=== PATIENT | male | born 1970 | race Asian ===

== ENCOUNTER 2018-02-18 15:23 | Outpatient (CLI) | payer OTHER ==
--- NOTE | 2018-02-19 10:38 | XRAY Report ---
CHEST, TWO VIEWS: 02/18/2018 HISTORY: Dry cough. COMPARISON: None. FINDINGS: The heart is mildly enlarged in size. The lungs are clear. There is no pleural fluid or pneumothorax. Minor age-related changes in the spine. IMPRESSION: MILD CARDIOMEGALY. CLEAR LUNGS. TD: 02/19/2018 10:36
== END 2018-02-18 15:24 | disposition home or self-care (01) ==
LOC: DI 15:23
PROVIDERS: ATTEND Internal Medicine
DX: R06.00 Dyspnea, unspecified (principal); R05 Cough; I51.7 Cardiomegaly
CPT/HCPCS: 71046

== ENCOUNTER 2020-09-14 08:57 | Outpatient (CLI) | payer OTHER ==
[2020-09-14 12:42] LABS: H. PYLORIS ANTIGEN STL NEGATIVE (Negative)
== END 2020-09-14 23:59 | disposition home or self-care (01) ==
LOC: LAB.R 08:57
PROVIDERS: ATTEND Internal Medicine Hematology & Oncology
DX: D69.6 Thrombocytopenia, unspecified (principal)
CPT/HCPCS: 87338

== ENCOUNTER 2020-10-09 07:12 | Outpatient (CLI) | payer OTHER ==
--- NOTE | 2020-10-09 10:36 | Ultrasound Report ---
PROCEDURE: Abdomen Complete INDICATIONS: THROMBOCYTOPENIA TECHNIQUE: Real-time scanning was performed of the abdominal and retroperitoneal organs, with image documentatio n. COMPARISON: None. FINDINGS: Liver: Liver is normal in size and homogeneous in echotexture. Gallbladder: No gallbladder wall thickening or pericholecystic fluid. No gallstones. Biliary ducts: Intrahepatic bile ducts are non-dilated. Extrahepatic bile duct caliber measures 2 m m. Normal is 6-7 mm or less in diameter, or 10 mm or less post-cholecystectomy. Pancreas: Visualized portions of the pancreas are sonographically normal. Spleen: Spleen is normal in size and homogeneous in echotexture. Kidneys: Kidneys are normal in size and echotexture. Right kidney measures 11.1 cm long; left kidne y measures 10.5 cm long. No hydronephrosis or nephrolithiasis. No solid masses. The left kidney hernandez s a simple cyst. Aorta: Visualized aorta is normal in caliber at less than 3 cm. Iliacs: Proximal common iliac arteries are normal in caliber at less than 2.5 cm. IVC: Intrahepatic inferior vena cava is patent. Miscellaneous: No free abdominal fluid. IMPRESSION: Normal abdominal ultrasound. No acute abnormality. Reviewed by: Don Wiggins on 10/09/2020 10:34 AM [facility] Approved by: Don Wiggins on 10/09/2020 10:34 AM [facility] Station ID: [id number]
== END 2020-10-09 07:13 | disposition home or self-care (01) ==
LOC: DI 07:12
PROVIDERS: ATTEND Internal Medicine Hematology & Oncology
DX: D69.6 Thrombocytopenia, unspecified (principal)
CPT/HCPCS: 76700

== ENCOUNTER 2021-05-16 21:28 | Outpatient (CLI) | payer OTHER ==
--- NOTE | 2021-05-17 06:34 | Ultrasound Report ---
PROCEDURE: Duplex Ext Veins Right INDICATIONS: RT ANKLE PAIN TECHNIQUE: Real-time imaging, as well as color and pulse Doppler interrogation, were performed of the lower extr emity deep veins from the inguinal ligament to the popliteal fossa. COMPARISON: None. FINDINGS: The deep veins are normally compressible, and free of intraluminal thrombus. Color and pu lse Doppler demonstrate normal phasic intraluminal flow. There is normal augmentation response to di stal compression maneuver. IMPRESSION: No evidence of deep vein thrombosis involving the right lower extremity. Reviewed by: Palmira Arroyo MD, PhD on 05/17/2021 6:33 AM PDT Approved by: Palmira Arroyo MD, PhD on 05/17/2021 6:33 AM PDT Station ID: [id number]
== END 2021-05-16 21:29 | disposition home or self-care (01) ==
LOC: DI 21:28
PROVIDERS: ATTEND Internal Medicine
DX: M25.571 Pain in right ankle and joints of right foot (principal)

== ENCOUNTER 2022-09-26 16:01 | Outpatient (CLI) | payer OTHER | END 2022-09-26 16:02 | disposition critical access hospital (66) | LOC: EMS 16:01 | DX: R06.02 Shortness of breath (principal); R50.9 Fever, unspecified | CPT/HCPCS: A0425; A0429 ==

== ENCOUNTER 2022-09-26 16:24 | Emergency (ER) | payer OTHER ==
[2022-09-26] MEDS ORDERED: IPRATROPIUM/ALBUTEROL 3 ML NEB INH STA (16:45)
[2022-09-26 16:57] LABS: BASOPHILS % (AUTO) 0.2 %; EOSINOPHILS % (AUTO) 0.2 %; HCT - HEMATOCRIT 42.7 % (42.0-52.0); HGB - HEMOGLOBIN 13.8 g/dL (14.0-18.0); LYMPHOCYTES # (AUTO) 0.8 10^3/uL (1.5-3.5); LYMPHOCYTES % (AUTO) 12.7 %; MEAN CORPUSCULAR HGB CONC 32.3 g/dL (32.0-36.0); MEAN CORPUSCULAR VOLUME 89.7 fL (80.0-94.0); MEAN PLATELET VOLUME 11.8 fL (7.4-11.4); MONOCYTES # (AUTO) 0.7 10^3/uL (0.0-1.0); MONOCYTES % (AUTO) 10.5 %; NEUTROPHILS # (AUTO) 4.7 10^3/uL (1.5-6.6); NEUTROPHILS % (AUTO) 76.2 %; PLT - PLATELET COUNT 99 10^3/uL (130-450); RED BLOOD COUNT 4.76 10^6/uL (4.70-6.10); RED CELL DISTRIBUTION WIDTH 13.7 % (12.0-15.0); WHITE BLOOD COUNT 6.2 x10^3/uL (4.8-10.8)
--- NOTE | 2022-09-26 16:57 | ED Physician Documentation ---
History of Present Illness - Stated complaint Stated Complaint: SOA - Chief complaint Chief Complaint: Resp - Additonal information Additional information: 52-year-old male presents to the emergency department For evaluation of sudden onset shortness of air rigors and fever. Patient does have a history of thrombocytopenia that was felt likely to be immune related however he does have a history of alcoholism. He did quit drinking many years ago. He also has a history of atrial fibrillation on anticoagulation. He is had no nausea or vomiting. mild chest pain, non raditing. Mostly with deep breaths. With the dyspnea at home he attempted to use albuterol though there was no therapeutic relief thus his brings him into the emergency department. reported to nursing staff that the patient lives in a home where multiple family members are sick with influenza Review of Systems Constitutional: reports: Fever, Myalgias, Fatigue Eyes: reports: Reviewed and negative Nose: reports: Reviewed and negative Cardiac: denies: Chest pain / pressure, Palpitations, Pedal edema, Calf pain Respiratory: reports: Dyspnea, Cough, Wheezing GI: reports: Abdominal Swelling : reports: Reviewed and negative Skin: reports: Reviewed and negative PD PAST MEDICAL HISTORY - Present Medications Home Medications: Ambulatory Orders Medication Instructions Recorded Confirmed Oseltamivir Phosphate [Tamiflu] 30 mg PO BID #10 cap 09/26/22 - Allergies Allergies/Adverse Reactions: Allergies Allergy/AdvReac Type Severity Reaction Status Date / Time No Known Drug Allergies Allergy Verified 12/23/20 10:17 - Social History Smoking Status: Never smoker PD ED PE NORMAL - General General: Alert and oriented X 3, No acute distress, Well developed/nourished - HEENT HEENT: Atraumatic, Ears normal, Moist mucous membranes - Neck Neck: Supple, no meningeal sign - Cardiac Cardiac: No murmur. No: RRR (Atrial fibrillation rate controlled) - Respiratory Respiratory: No respiratory distress, Clear bilaterally - Abdomen Abdomen: Normal bowel sounds, Soft. No: Non tender (Mild distention though no tenderness. No clear ascites) - Back Back: No CVA TTP, No spinal TTP - Derm Derm: Normal color, Warm and dry - Extremities Extremities: No deformity, No tenderness to palpate, Normal ROM s pain - Neuro Neuro: Alert and oriented X 3, range technician 2-12 intact Eye Opening: Spontaneous Motor: Obeys Commands Verbal: Oriented GCS Score: 15 Results - Vitals Vitals: Vital Signs - 24 hr 11/09/22 11/09/22 11/09/22 16:34 17:10 17:17 Temperature 39.4 C H Heart Rate 86 87 89 Respiratory 33 H 32 H 20 Rate Blood Pressure 124/70 112/65 O2 Saturation 96 95 09/26/22 09/26/22 09/26/22 17:30 18:00 18:30 Temperature 39.1 C H Heart Rate 88 86 86 Respiratory 28 H 36 H 24 Rate Blood Pressure 105/57 L 105/57 L 111/70 O2 Saturation 95 92 93 09/26/22 19:00 Temperature Heart Rate 84 Respiratory 30 H Rate Blood Pressure 125/58 L O2 Saturation 96 Oxygen O2 Source Room air - EKG (time done) 1704 Rate: Rate (enter#) (85) Rhythm: Atrial fibrillation Deane: Normal Intervals: No: Prolonged QT QRS: LVH Ischemia: Normal ST segments Compare to prior EKG: Old EKG unavailable Computer interpretation: Agree with computer - Labs Labs: Laboratory Tests 09/26/22 09/26/22 09/26/22 16:46 16:46 16:46 WBC 6.2 RBC 4.76 Hgb 13.8 L Hct 42.7 MCV 89.7 MCH 29.0 MCHC 32.3 RDW 13.7 Plt Count 99 L MPV 11.8 H Neut # (Auto) 4.7 Lymph # (Auto) 0.8 L [place] # (Auto) 0.7 Eos # (Auto) 0.0 Baso # (Auto) 0.0 Absolute Nucleated RBC 0.00 Nucleated RBC % 0.0 Sodium 134 L Potassium 3.7 Chloride 102 Carbon Dioxide 23 Anion Gap 9.0 BUN 26 H Creatinine 1.4 H Estimated GFR (MDRD) 53 L Glucose 111 H Calcium 8.4 L Total Bilirubin 0.9 AST 32 ALT 23 Alkaline Phosphatase 77 Troponin I High Sens 106.0 H* B-Natriuretic Peptide Total Protein 7.4 Albumin 3.9 Globulin 3.5 Albumin/Globulin Ratio 1.1 Lipase 50 TSH Thyroxine (T4) Nasal Adenovirus (PCR) Nasal B. parapertussis DNA (PCR) Nasal Coronavir 229E PCR Nasal Coronavir HKU1 PCR Nasal Coronavir NL63 PCR Nasal Coronavir OC43 PCR Nasal Enterovir/Rhinovir PCR Nasal Influenza A H3 PCR Nasal Influenza B PCR Nasal Parainfluen 1 PCR Nasal Parainfluen 2 PCR Nasal Parainfluen 3 PCR Nasal Parainfluen 4 PCR Nasal RSV (PCR) Nasal B.pertussis DNA PCR Nasal C.pneumoniae (PCR) Fredrick Human Metapneumo PCR Nasal M.pneumoniae (PCR) Nasal SARS-CoV-2 (PCR) 09/26/22 09/26/22 09/26/22 16:46 16:46 17:00 WBC RBC Hgb Hct MCV MCH MCHC RDW Plt Count MPV Neut # (Auto) Lymph # (Auto) [place] # (Auto) Eos # (Auto) Baso # (Auto) Absolute Nucleated RBC Nucleated RBC % Sodium Potassium Chloride Carbon Dioxide Anion Gap BUN Creatinine Estimated GFR (MDRD) Glucose Calcium Total Bilirubin AST ALT Alkaline Phosphatase Troponin I High Sens B-Natriuretic Peptide 723 H Total Protein Albumin Globulin Albumin/Globulin Ratio Lipase TSH 5.04 Thyroxine (T4) 6.48 Nasal Adenovirus (PCR) NOT DETECTED Nasal B. parapertussis DNA (PCR) NOT DETECTED Nasal Coronavir 229E PCR NOT DETECTED Nasal Coronavir HKU1 PCR NOT DETECTED Nasal Coronavir NL63 PCR NOT DETECTED Nasal Coronavir OC43 PCR NOT DETECTED Nasal Enterovir/Rhinovir PCR DETECTED A Nasal Influenza A H3 PCR DETECTED A Nasal Influenza B PCR NOT DETECTED Nasal Parainfluen 1 PCR NOT DETECTED Nasal Parainfluen 2 PCR NOT DETECTED Nasal Parainfluen 3 PCR NOT DETECTED Nasal Parainfluen 4 PCR NOT DETECTED Nasal RSV (PCR) NOT DETECTED Nasal B.pertussis DNA PCR NOT DETECTED Nasal C.pneumoniae (PCR) NOT DETECTED Fredrick Human Metapneumo PCR NOT DETECTED Nasal M.pneumoniae (PCR) NOT DETECTED Nasal SARS-CoV-2 (PCR) NOT DETECTED 09/26/22 19:16 WBC RBC Hgb Hct MCV MCH MCHC RDW Plt Count MPV Neut # (Auto) Lymph # (Auto) [place] # (Auto) Eos # (Auto) Baso # (Auto) Absolute Nucleated RBC Nucleated RBC % Sodium Potassium Chloride Carbon Dioxide Anion Gap BUN Creatinine Estimated GFR (MDRD) Glucose Calcium Total Bilirubin AST ALT Alkaline Phosphatase Troponin I High Sens 137.9 H* B-Natriuretic Peptide Total Protein Albumin Globulin Albumin/Globulin Ratio Lipase TSH Thyroxine (T4) Nasal Adenovirus (PCR) Nasal B. parapertussis DNA (PCR) Nasal Coronavir 229E PCR Nasal Coronavir HKU1 PCR Nasal Coronavir NL63 PCR Nasal Coronavir OC43 PCR Nasal Enterovir/Rhinovir PCR Nasal Influenza A H3 PCR Nasal Influenza B PCR Nasal Parainfluen 1 PCR Nasal Parainfluen 2 PCR Nasal Parainfluen 3 PCR Nasal Parainfluen 4 PCR Nasal RSV (PCR) Nasal B.pertussis DNA PCR Nasal C.pneumoniae (PCR) Fredrick Human Metapneumo PCR Nasal M.pneumoniae (PCR) Nasal SARS-CoV-2 (PCR) - Rads (name of study) cxr Radiology: Final report received (No acute cardiopulmonary process) PD MEDICAL DECISION MAKING - ED course Complexity details: reviewed results, re-evaluated patient, d/w patient, d/w delivery consultant (Dr. Hall [facility]) ED course: 52-year-old male who has a history of thrombocytopenia former alcoholism as well as hypertension and A. fib anticoagulated on Xarelto presents to the emergency department for evaluation of acute febrile illness that began a few hours prior to arrival. Multiple family members at home are positive for the flu. Patient reports very briefly he had some chest pain with deep breath but it is fully abated since then. On presentation to the ER he is alert and well-appearing however he is febrile at 39 degrees. No hypoxia. He has tested positive for influenza A. Chest x-ray did not show any acute focal findings. His EKG showed a rate controlled atrial fibrillation without ischemia. However the initial troponin was 100. On repeat it was 137. He does have some chronic kidney disease as well as a mild BNP elevation though clinically does not appear to be in heart failure. I have spoken with on-call print line feeder for [facility] Dr. Hall. We discussed the patient's clinical presentation of febrile illness in the setting of influenza as well as a history of atrial fibrillation on anticoagulation. He does not feel that the elevated troponin is indicative of an OK. He would make the recommendation for admission to the hospital for echocardiogram in the morning and further treatment of the influenza otherwise. 2015: I spoke with the patient and his at the bedside and I told him that I would like to admit them to the hospital for an echocardiogram in the morning and to ensure that the troponins are downtrending. We discussed the possible etiology of elevated troponins which could be seen in NSTEMI, febrile illness, pericarditis as well as this febrile illness. However the patient does not want to remain in the hospital overnight therefore he is discharged AGAINST MEDICAL ADVICE however I will institute treatment of influenza with Tamiflu. They were told that if his condition should worsen in any way he was to return immediately to the ER with no questions asked. They both verbalized understanding. Departure - Departure Disposition: 07 Against Medical Advice Clinical Impression: Influenza A, Elevated troponin, History of atrial fibrillation Chronic kidney disease (CKD) Qualifiers: Chronic kidney disease stage: unspecified stage Qualified Code(s): N18.9 - Chronic kidney disease, unspecified Condition: Stable Record reviewed to determine appropriate education?: Yes Instructions: Medication: Tamiflu (Oseltamivir) Prescriptions: Oseltamivir Phosphate [Tamiflu] 30 mg PO BID #10 cap Comments: Esvin came to the emergency department because he developed a sudden febrile illness at home with shakes fever rigors and chills. He has tested positive for influenza A. His chest x-ray does not show any findings of pneumonia. His EKG shows atrial fibrillation. In the emergency department today we note that his hemoglobin is normal. He does have known and unchanged chronic kidney disease. His troponin, which is sometimes a marker of cardiac inflammation was a little bit elevated. This could be seen due to atrial fibrillation, the chronic kidney disease, the influenza or it could be a sign of a form of a heart attack. I did discuss this case with the on-call print line feeder Dr. Hall. This is a print line feeder at [facility]. He made the recommendation that Esvin be observed and to obtain an echocardiogram in the morning but you guys have declined that. In order to treat the influenza I have sent a prescription for Tamiflu to [facility] in [place]. He needs to stay well-hydrated. He should continue to take all his usual medications. If his symptoms are worsening in any way please return immediately to the emergency department.
[2022-09-26 17:11] LABS: ALBUMIN 3.9 g/dL (3.2-5.5); ALBUMIN/GLOBULIN RATIO 1.1 (1.0-2.2); BILIRUBIN,TOTAL 0.9 mg/dL (0.2-1.0); CALCIUM 8.4 mg/dL (8.5-10.3); CREATININE 1.4 mg/dL (0.6-1.2); POTASSIUM 3.7 mmol/L (3.5-5.0); TOTAL PROTEIN 7.4 g/dL (6.7-8.2)
--- NOTE | 2022-09-26 17:11 | XRAY Report ---
PROCEDURE: Chest 1 View X-Ray INDICATIONS: Chest Pain TECHNIQUE: One view of the chest was acquired. COMPARISON: Chest x-ray 04/20/2022 FINDINGS: Surgical changes and devices: Pacemaker with intact leads. Lungs and pleura: No pleural effusions or pneumothorax. Lungs are clear. Mediastinum: Mediastinal contours appear normal. Heart size is enlarged. Bones and chest wall: No suspicious bony lesions. Overlying soft tissues appear unremarkable. IMPRESSION: No acute pulmonary process. Reviewed by: Abbey Chin MD on 09/26/2022 5:09 PM PST Approved by: Abbey Chin MD on 09/26/2022 5:09 PM PST Station ID: [id number]
[2022-09-26 17:23] LABS: T4 (THYROXINE) 6.48 ug/dL (6.09-12.23)
[2022-09-26 17:27] LABS: THYROID STIMULATING HORMONE 5.04 uIU/mL (0.34-5.60)
[2022-09-26 18:24] LABS: B. PARAPERTUSSIS- RESP PCR PAN NOT DETECTED; B. PERTUSSIS- RESP PCR PANEL NOT DETECTED; C. PNEUMONIAE- RESP PCR PANEL NOT DETECTED; CORONAVIRUS 229E-RESP PCR NOT DETECTED; CORONAVIRUS HKU1-RESP PCR NOT DETECTED; CORONAVIRUS NL63-RESP PCR NOT DETECTED; CORONAVIRUS OC43-RESP PCR NOT DETECTED; HUMAN METAPNEUMOVIRUS NOT DETECTED; INFLUENZA A H3- RESP PCR PANEL DETECTED; INFLUENZA B - RESP PCR PANEL NOT DETECTED; M. PNEUMONIAE- RESP PCR PANEL NOT DETECTED; PARAINFLUENZA VIRUS 1 NOT DETECTED; PARAINFLUENZA VIRUS 2 NOT DETECTED; PARAINFLUENZA VIRUS 3 NOT DETECTED; PARAINFLUENZA VIRUS 4 NOT DETECTED; RHINOVIRUS/ENTEROVIRUS DETECTED; RSV- RESP PCR PANEL NOT DETECTED; SARS-CoV-2 -RESP PCR PANEL NOT DETECTED
[2022-09-26] MEDS ORDERED: ACETAMINOPHEN 325 MG TABLET PO STA (18:39)
[2022-09-26] MEDS ORDERED: SODIUM CHLORIDE 0.9% 1,000 ML IV STA (18:39)
[2022-09-26] MEDS ORDERED: OSELTAMIVIR 75 MG CAPSULE PO STA (20:23)
[2022-09-26 20:33] VITALS: BP 115/65
== END 2022-09-26 20:37 | disposition left against medical advice (07) ==
LOC: EDBD → EDUNIT# → ED 16:24
DX: J10.1 Influenza due to other identified influenza virus with other respiratory manifestations (principal); I48.91 Unspecified atrial fibrillation; Z79.01 Long term (current) use of anticoagulants; N18.9 Chronic kidney disease, unspecified; R77.8 Other specified abnormalities of plasma proteins; Z20.822 Contact with and (suspected) exposure to COVID-19
CPT/HCPCS: 36415; 71045; 80053; 83690; 83880; 84436; 84443; 84484; 85025; 87633; 93005; 94640; 94664; 96360; 99284; A9270

== ENCOUNTER 2023-11-12 08:05 | Outpatient (CLI) | payer MEDICAID ==
[2023-11-12 08:38] LABS: BASOPHILS % (AUTO) 0.7 %; EOSINOPHILS # (AUTO) 0.2 10^3/uL (0.0-0.7); EOSINOPHILS % (AUTO) 2.6 %; HCT - HEMATOCRIT 41.5 % (42.0-52.0); HGB - HEMOGLOBIN 13.6 g/dL (14.0-18.0); LYMPHOCYTES # (AUTO) 0.4 10^3/uL (1.5-3.5); LYMPHOCYTES % (AUTO) 7.2 %; MEAN CORPUSCULAR HEMOGLOBIN 30.9 pg (27.0-31.0); MEAN CORPUSCULAR HGB CONC 32.8 g/dL (32.0-36.0); MEAN CORPUSCULAR VOLUME 94.3 fL (80.0-94.0); MEAN PLATELET VOLUME 10.8 fL (7.4-11.4); MONOCYTES # (AUTO) 0.5 10^3/uL (0.0-1.0); MONOCYTES % (AUTO) 8.9 %; NEUTROPHILS # (AUTO) 4.6 10^3/uL (1.5-6.6); NEUTROPHILS % (AUTO) 78.6 %; PLT - PLATELET COUNT 155 10^3/uL (130-450); WHITE BLOOD COUNT 5.9 x10^3/uL (4.8-10.8)
[2023-11-12 08:50] LABS: CALCIUM 9.2 mg/dL (8.5-10.3); CREATININE 1.2 mg/dL (0.6-1.3); MAGNESIUM 1.4 mg/dL (1.7-2.3); POTASSIUM 4.8 mmol/L (3.5-4.5)
== END 2023-11-12 08:06 | disposition home or self-care (01) ==
LOC: LAB 08:05
PROVIDERS: ATTEND Internal Medicine Cardiovascular Disease
DX: Z51.81 Encounter for therapeutic drug level monitoring (principal); Z94.1 Heart transplant status; Z79.899 Other long term (current) drug therapy
CPT/HCPCS: 36415; 80048; 80197; 83735; 85025

== ENCOUNTER 2023-12-12 07:57 | Outpatient (CLI) | payer MEDICAID ==
[2023-12-12 08:40] LABS: BASOPHILS % (AUTO) 0.3 %; EOSINOPHILS # (AUTO) 0.1 10^3/uL (0.0-0.7); EOSINOPHILS % (AUTO) 1.3 %; HCT - HEMATOCRIT 45.3 % (42.0-52.0); HGB - HEMOGLOBIN 14.9 g/dL (14.0-18.0); LYMPHOCYTES # (AUTO) 0.7 10^3/uL (1.5-3.5); LYMPHOCYTES % (AUTO) 6.6 %; MEAN CORPUSCULAR HEMOGLOBIN 29.8 pg (27.0-31.0); MEAN CORPUSCULAR HGB CONC 32.9 g/dL (32.0-36.0); MEAN CORPUSCULAR VOLUME 90.6 fL (80.0-94.0); MEAN PLATELET VOLUME 11.2 fL (7.4-11.4); MONOCYTES # (AUTO) 0.8 10^3/uL (0.0-1.0); MONOCYTES % (AUTO) 7.4 %; NEUTROPHILS # (AUTO) 8.7 10^3/uL (1.5-6.6); PLT - PLATELET COUNT 159 10^3/uL (130-450); RED CELL DISTRIBUTION WIDTH 12.3 % (12.0-15.0); WHITE BLOOD COUNT 10.7 x10^3/uL (4.8-10.8)
[2023-12-12 08:55] LABS: CALCIUM 9.2 mg/dL (8.5-10.3); CREATININE 1.3 mg/dL (0.6-1.3); MAGNESIUM 1.4 mg/dL (1.7-2.3); POTASSIUM 4.1 mmol/L (3.5-4.5)
== END 2023-12-12 07:58 | disposition home or self-care (01) ==
LOC: LAB 07:57
PROVIDERS: ATTEND Internal Medicine Cardiovascular Disease
DX: Z09 Encounter for follow-up examination after completed treatment for conditions other than malignant neoplasm (principal); Z94.1 Heart transplant status
CPT/HCPCS: 36415; 80048; 80197; 83735; 85025

== ENCOUNTER 2024-01-23 10:45 | Outpatient (CLI) | payer MEDICAID ==
--- NOTE | 2024-01-23 12:22 | XRAY Report ---
PROCEDURE: Chest 2V INDICATIONS: CHRONIC COUGH TECHNIQUE: 2 views of the chest were acquired. COMPARISON: 09/26/2022. FINDINGS: Surgical changes and devices: Median sternotomy wires. Removal of right chest wall pacemaker. Lungs and pleura: No pleural effusions or pneumothorax. Density projecting over the left upper lung field measuring 8 mm is stable compared to prior exams dating back to 2018 and favored to be benign lesion such as a calcified granuloma. Lungs are otherwise clear. Mediastinum: Mediastinal contours appear normal. Heart size is normal. Bones and chest wall: No suspicious bony lesions. Overlying soft tissues appear unremarkable. IMPRESSION: No acute cardiopulmonary process. Reviewed by: Jason Hernández MD on 01/23/2024 12:21 PM PST Approved by: Jason Hernández MD on 01/23/2024 12:21 PM PST Station ID: [id number]
== END 2024-01-23 11:00 | disposition home or self-care (01) ==
LOC: DI.N 10:45
PROVIDERS: ATTEND Physician Assistant
DX: R05.3 Chronic cough (principal)

== ENCOUNTER 2024-05-04 09:25 | Outpatient (CLI) | payer MEDICAID ==
--- NOTE | 2024-05-04 10:10 | XRAY Report ---
PROCEDURE: Knee 4+V BL INDICATIONS: KNEE JOINT PAIN TECHNIQUE: 5 views of the knee(s) were acquired. COMPARISON: None. FINDINGS: Bones: No fractures or dislocations. No suspicious bony lesions. Soft tissues: No knee joint effusion. No suspicious soft tissue calcifications or masses. IMPRESSION: No acute bony abnormality. No significant degenerative changes. If pain persists with conservative ma nagement, consider repeat x-ray in 10-14 days or cross-sectional imaging. Reviewed by: Jason Hernández MD on 05/04/2024 10:08 AM PDT Approved by: Jason Hernández MD on 05/04/2024 10:08 AM PDT Station ID: [id number]
== END 2024-05-04 09:26 | disposition home or self-care (01) ==
LOC: DI 09:25
PROVIDERS: ATTEND Physician Assistant
DX: M25.561 Pain in right knee (principal); M25.562 Pain in left knee

== ENCOUNTER 2024-07-14 09:24 | Outpatient (CLI) | payer MEDICAID ==
[2024-07-14 09:48] LABS: BASOPHILS % (AUTO) 0.5 %; EOSINOPHILS # (AUTO) 0.2 10^3/uL (0.0-0.7); EOSINOPHILS % (AUTO) 4.1 %; HCT - HEMATOCRIT 42.5 % (42.0-52.0); HGB - HEMOGLOBIN 14.3 g/dL (14.0-18.0); LYMPHOCYTES # (AUTO) 1.1 10^3/uL (1.5-3.5); LYMPHOCYTES % (AUTO) 28.5 %; MEAN CORPUSCULAR HEMOGLOBIN 28.9 pg (27.0-31.0); MEAN CORPUSCULAR HGB CONC 33.6 g/dL (32.0-36.0); MEAN PLATELET VOLUME 10.6 fL (7.4-11.4); MONOCYTES # (AUTO) 0.5 10^3/uL (0.0-1.0); MONOCYTES % (AUTO) 11.7 %; NEUTROPHILS # (AUTO) 2.2 10^3/uL (1.5-6.6); NEUTROPHILS % (AUTO) 54.9 %; PLT - PLATELET COUNT 139 10^3/uL (130-450); RED BLOOD COUNT 4.94 10^6/uL (4.70-6.10); RED CELL DISTRIBUTION WIDTH 12.1 % (12.0-15.0); WHITE BLOOD COUNT 3.9 x10^3/uL (4.8-10.8)
[2024-07-14 10:15] LABS: CALCIUM 9.2 mg/dL (8.5-10.3); CREATININE 1.1 mg/dL (0.6-1.3); MAGNESIUM 1.2 mg/dL (1.7-2.3)
[2024-07-15 07:10] LABS: SIROLIMUS (RAPAMUNE) 2.9 ng/mL (3.0-20.0); TACROLIMUS (FK506) 6.7 ng/mL (2.0-20.0)
== END 2024-07-14 09:25 | disposition home or self-care (01) ==
LOC: LAB 09:24
PROVIDERS: ATTEND Internal Medicine Cardiovascular Disease
DX: Z09 Encounter for follow-up examination after completed treatment for conditions other than malignant neoplasm (principal); Z94.1 Heart transplant status
CPT/HCPCS: 36415; 80048; 80195; 80197; 83735; 85025